=== PATIENT | female | born 1960 | race Caucasian/White ===

== ENCOUNTER 2023-08-15 14:02 | Outpatient (CLI) | payer SELFPAY ==
[2023-08-15 15:10] LABS: Anion Gap 15 mmol/L (10-20); BUN (Urea Nitrogen) 12 mg/dL (9.8-20.1); Calc. Creatinine Clearance 0 mL/min (70-130); Carbon Dioxide 28 mmol/L (22-29); Chloride 104 mmol/L (98-107); Estimated GFR 97; Glucose 84 mg/dL (70-105); Potassium 4.6 mmol/L (3.5-5.1); Sodium 142 mmol/L (136-145)
== END 2023-08-15 14:03 | disposition home or self-care (01) ==
LOC: CSHLAB 14:02
PROVIDERS: ATTEND Surgery
DX: Z01.818 Encounter for other preprocedural examination (principal)
CPT/HCPCS: 80048; 93005; 93010

== ENCOUNTER 2023-08-18 08:21 | Day surgery (SDC) | payer SELFPAY ==
[2023-08-15 13:02] VITALS: BMI 34.4
[2023-08-18] MEDS ORDERED: Bupivacaine PF 0.5% 30 ML VIAL ONE (10:08)
[2023-08-18] MEDS ORDERED: EPINEPHrine 1 MG/ML VIAL ONE (10:08)
[2023-08-18] MEDS ORDERED: CEFAZOLIN 2 GM VIAL ONE (11:28)
[2023-08-18] MEDS ORDERED: fentaNYL 50 mcg/mL 1 mL Vial ONE (11:28)
[2023-08-18] MEDS ORDERED: PROPOFOL 20 ML ONE ×2 (11:28→11:45)
[2023-08-18] MEDS ORDERED: Lidocaine 1% PF 5 ML VIAL ONE (11:28)
[2023-08-18] MEDS ORDERED: Ondansetron PF 4 MG/2 ML Vial ONE (12:02)
[2023-08-18] MEDS ORDERED: Acetaminophen 325 MG TAB PO PRN (12:34)
[2023-08-18] MEDS ORDERED: HYDROcodone/Acetaminophen 5/325 mg Tablet PO PRN (12:34)
== END 2023-08-18 13:25 | disposition home or self-care (01) ==
LOC: CSHSDC 08:21
PROVIDERS: ATTEND Surgery
PROC: 0JH60WZ Insertion of Totally Implantable Vascular Access Device into Chest Subcutaneous Tissue and Fascia, Open Approach (ICD-10-PCS; principal; 2023-08-18)
DX: C50.911 Malignant neoplasm of unspecified site of right female breast (principal); I10 Essential (primary) hypertension; Z88.2 Allergy status to sulfonamides
CPT/HCPCS: 71045; C1788; J0171; J1642; J2405; J2704; J3010; S0020